=== PATIENT | female | born 1995 | race Caucasian/White ===

== ENCOUNTER 2017-05-19 05:02 | Emergency (ER) | payer OTHER, SELFPAY ==
[2017-05-19] MEDS ORDERED: Ondansetron HCl/PF 4 MG/2 ML Vial ONE (05:50)
[2017-05-19] MEDS ORDERED: Famotidine/PF 20 mg/2ml Vial ONE (05:50)
[2017-05-19] MEDS ORDERED: Ketorolac Tromethamine 30 MG/ML VIAL ONE (05:50)
[2017-05-19 05:58] LABS: #Basophils 0.1 thou/uL (0.0-0.2); #Eosinphils 0.3 thou/uL (0.0-0.7); #Lymphocytes 2.9 thou/uL (1.20-3.40); #Monocytes 0.6 thou/uL (0.11-0.59); #Neutrophils 6.7 thou/uL (1.40-6.50); %Basophils 0.8 % (0.0-1.0); %Eosinophils 3.1 % (0.0-10.0); %Lymphocytes 27.4 % (21.0-51.0); %Monocytes 5.4 % (0.0-10.0); Hematocrit 35.9 % (36.0-47.0); Mean Platelet Volume 6.2 fL (7.4-10.4); Red Blood Cell (RBC) Count 4.08 mill/uL (4.20-5.40); White Blood Cell (WBC) Count 10.5 thou/uL (4.8-10.8)
[2017-05-19 06:13] LABS: ALT (SGPT) 44 U/L (8-55); AST (SGOT) 76 U/L (5-34); Alkaline Phosphatase 69 U/L (40-150); Anion Gap 16 mmol/L (10-20); BUN (Urea Nitrogen) 13 mg/dL (7.0-18.7); Calc. Creatinine Clearance 0 mL/min (70-130); Calcium 9.2 mg/dL (7.8-10.44); Carbon Dioxide 22 mmol/L (22-29); Chloride 108 mmol/L (98-107); Estimated GFR-MDRD 86; Lipase 17 U/L (8-78); Protein, Total 7.2 g/dL (6.0-8.3)
[2017-05-19 06:14] LABS: Troponin I Less than 0.010 ng/mL (< 0.028)
[2017-05-19] MEDS ORDERED: Morphine 4 MG/ML Carpuject ONE (07:06)
--- NOTE | 2017-05-19 08:06 | RAD ---
CHEST TWO VIEWS HISTORY: Chest pain. COMPARISON: None. FINDINGS: Lungs are clear. No pneumothorax or effusion. Cardiac silhouette and mediastinal contours are with in normal limits. IMPRESSION: No acute intrathoracic abnormality. POS: MED
--- NOTE | 2017-05-19 08:13 | ULT ---
RIGHT UPPER QUADRANT ULTRASOUND: 05/19/2017 COMPARISON: None. HISTORY: Right upper quadrant pain. TECHNIQUE: Multiplanar herrera scale sonographic imaging of the right upper quadrant obtained. The registered nurse cardiovascular icu re ports a negative sonographic Funes's sign. FINDINGS: The imaged pancreatic parenchyma appears grossly unremarkable, the tail obscured by bowel gas. The common bile duct measures in the 5 mm range, within normal limits. There is no gallbladder wall thickening or pericholecystic fluid. There are multiple foci of increa sed echogenicity with shadowing glaring dependently within the gallbladder lumen, evidence of multip le small mobile gallstones. Right kidney measures 11.3 cm in craniocaudal dimension and demonstrates no stone, hydronephrosis, o r mass lesion. IMPRESSION: Cholelithiasis with no sonographic evidence of cholecystitis or biliary dilatation. The common bile duct measures in the 5 mm range, upper limits of normal for a patient of this age. POS: OPHELIA
--- NOTE | 2017-05-19 08:13 | CT ---
CT ANGIOGRAM OF THE DARLYN WITH CONTRAST: History: Back pain, chest pain. Technique: CT angiogram of the chest performed after the intravenous administration of contrast. 3D rendering provided. Comparison: Chest radiograph same day. FINDINGS: No proximal segmental pulmonary arterial filling defect. Heart size is normal. No pericardial effusi on. Aortic size is normal. Pulmonary trunk is not enlarged. Mild periportal edema of the liver. Lungs are without focal airspace consolidation, pneumothorax or effusion. IMPRESSION: 1. No segmental proximal pulmonary arterial filling defect. 2. No acute intrathoracic abnormality. 3. High density material within the left superior renal collecting system. The phase of contrast is too early to be contrast in the renal collecting systems and may represent calculus. POS: MED
--- NOTE | 2017-05-29 16:30 | EKG ---
Test Reason : Blood Pressure : / mmHG Vent. Rate : 068 BPM Atrial Rate : 090 BPM P-R Int : 000 ms QRS Dur : 096 ms QT Int : 374 ms P-R-T Axes : 035 063 037 degrees QTc Int : 397 ms Poor data quality, interpretation may be adversely affected Normal sinus rhythm Nonspecific T wave abnormality Cannot rule out Anterior infarct , age undetermined Abnormal ECG Confirmed by SHELTON PIEDRA, LUIS ([id number]), newspaper or periodical editor DANIS ROBERTS ([id number]) on 05/29/2017 4:30:40 PM Referred By: SHELTON Confirmed By:LUIS PEOPLES MD
== END 2017-05-19 08:57 | disposition home or self-care (01) ==
LOC: SCSER 05:02
DX: K80.50 Calculus of bile duct without cholangitis or cholecystitis without obstruction (principal); F17.210 Nicotine dependence, cigarettes, uncomplicated
CPT/HCPCS: 71020; 71275; 76705; 80053; 82553; 83690; 84484; 84703; 85025; 85379; 93005; 96361; 96374; 96375; J1885; J2270; J2405; S0028

== ENCOUNTER 2018-05-15 19:21 | Emergency (ER) | payer OTHER, SELFPAY ==
[2018-05-15] MEDS ORDERED: Lidocaine 1% MPF 2 ML VIAL ONE (20:21)
[2018-05-15] MEDS ORDERED: cefTRIAXone\\ROCEPHIN 250 MG VIAL ONE (20:21)
[2018-05-15] MEDS ORDERED: Azithromycin 250 MG TAB ONE (20:21)
[2018-05-18 00:58] LABS: Chlamydia by PCR Not Detected (NotDetected); GC by PCR Not Detected (NotDetected)
== END 2018-05-15 21:06 | disposition home or self-care (01) ==
LOC: SCSER 19:21
DX: N89.8 Other specified noninflammatory disorders of vagina (principal); F17.210 Nicotine dependence, cigarettes, uncomplicated
CPT/HCPCS: 87252; 87480; 87491; 87510; 87591; 87660; 96372; J0696

== ENCOUNTER 2018-10-16 13:08 | Emergency (ER) | payer SELFPAY ==
[2018-10-16] MEDS ORDERED: Adacel (T-DAP) 0.5 ML SYRINGE ONE (14:09)
--- NOTE | 2018-10-16 14:19 | RAD ---
LEFT FOOT 2 VIEWS: Date: 10/16/18 HISTORY: Patient stepped on a nail yesterday. FINDINGS: There are no signs of fracture. No radiopaque foreign bodies are seen. There is some soft tissue swel ling to the plantar side of the foot, which appears to be beneath the first and second metatarsal hea ds. No air is seen within the soft tissue. IMPRESSION: No radiopaque foreign bodies or fracture. POS: OPHELIA
== END 2018-10-16 14:40 | disposition home or self-care (01) ==
LOC: SCSER 13:08
DX: S91.332A Puncture wound without foreign body, left foot, initial encounter (principal); F17.210 Nicotine dependence, cigarettes, uncomplicated; W22.8XXA Striking against or struck by other objects, initial encounter
CPT/HCPCS: 90471; 90715